=== PATIENT | male | born 1950 | race Two or more races ===

== ENCOUNTER 2020-12-07 23:55 | Inpatient (IN) | payer OTHER, MEDICAID ==
[~2020-12-07] VITALS: Ht 165.1 cm; Wt 73.2 kg
--- NOTE | 2020-12-07 19:20 | NUR ---
Admission report received from AM nurse.
--- NOTE | 2020-12-07 22:30 | NUR ---
Patient arrived in the unit via gurney accompanied by 2 EMT's. Awake, alert and Canadian speaking. RE-orient patient to room, call light, TV remote and nurses assigned. Denies any pauin/discomforts. Not in distress. [place] Collar in used, removed gently when settled in bed. Slight mobility noted when turning/repositioning self in bed. Routine admission care done. Care plan initiated.
[2020-12-08] VITALS: BP 127/67
[2020-12-08] MEDS ORDERED: Z GUARD REMEDY PASTE 57 GM TUBE TOP PRN (01:15)
[2020-12-08] MEDS ORDERED: POLY17PO4 PO (01:52)
[2020-12-08] MEDS ORDERED: NITR0.4T48 SL (01:52)
[2020-12-08] MEDS ORDERED: AMLO10TA59 PO (01:52)
[2020-12-08] MEDS ORDERED: LISI40TA13 PO (01:52)
[2020-12-08] MEDS ORDERED: INSU100V7 SQ (01:52)
[2020-12-08] MEDS ORDERED: ZOLP5TAB8 PO (01:52)
[2020-12-08] MEDS ORDERED: MINE3.5O44 (01:52)
[2020-12-08] MEDS ORDERED: INSU100V39 SQ (01:52)
[2020-12-08] MEDS ORDERED: CLON0.1T PO (01:52)
[2020-12-08] MEDS ORDERED: METH-807 PO (01:52)
[2020-12-08] MEDS ORDERED: BISA10SU61 RC (01:52)
[2020-12-08] MEDS ORDERED: DOCU100C36 PO (01:52)
[2020-12-08] MEDS ORDERED: ATOR20TA PO (01:52)
[2020-12-08] MEDS ORDERED: ACET-2154 PO (01:52)
[2020-12-08] MEDS ORDERED: HYDR-3980 PO (01:52)
[2020-12-08] MEDS ORDERED: ASPI81TA31 PO (01:52)
[2020-12-08] MEDS ORDERED: SENN8.6T19 PO (01:52)
[2020-12-08] MEDS ORDERED: POVI100M TP (01:52)
[2020-12-08 04:00] VITALS: BP 129/63
[2020-12-08] MEDS ORDERED: ZOLPIDEM 5 MG TABLET PO PRN (07:30)
[2020-12-08] MEDS ORDERED: SENNOSIDES 1 TABLET PO PRN (07:30)
[2020-12-08] MEDS ORDERED: BISACODYL 10 MG SUPP.RECT RC PRN (07:30)
[2020-12-08] MEDS ORDERED: ACETAMINOPHEN 325 MG TABLET PO PRN (07:30)
[2020-12-08] MEDS ORDERED: CLONIDINE HCL 0.1 MG TABLET PO PRN (07:30)
[2020-12-08] MEDS ORDERED: NITROGLYCERIN 0.4 MG/TAB BOTTLE SL PRN (07:30)
[2020-12-08] MEDS ORDERED: DEXTROSE 50% 50 ML DISP.SYRIN IV PRN (07:45)
[2020-12-08 08:00] VITALS: BP 129/71
[2020-12-08] MEDS ORDERED: POLYVINYL ALCOHOL OPHT DROPS 15 ML BOTTLE OP PRN (08:00)
[2020-12-08] MEDS: ASPIRIN 81 MG TAB.CHEW PO SCH (08:48)
[2020-12-08] MEDS: DOCUSATE SODIUM 100 MG CAPSULE PO SCH ×2 (08:48→20:07)
[2020-12-08] MEDS: AMLODIPINE 10 MG TABLET PO SCH (08:48)
[2020-12-08] MEDS: MIRALAX 17 GM POWD.PACK PO SCH (08:49)
[2020-12-08] MEDS: LISINOPRIL 20 MG TABLET PO SCH (08:49)
[2020-12-08] MEDS ORDERED: Medication Not On Formulary EA (Lisinopril 40 MG) PO SCH (09:00)
[2020-12-08] MEDS: HYDROCODONE/APAP 10-325 MG TABLET PO PRN ×2 (09:05→17:36)
[2020-12-08] MEDS: BLOOD SUGAR DIAGNOSTIC 1 EACH STRIP VI SCH ×3 (11:47→20:13)
[2020-12-08] MEDS: INSULIN REGULAR, HUMAN 300 UNIT/3 ML VIAL SQ PRN ×3 (11:51→20:14)
[2020-12-08] MEDS: ENOXAPARIN SODIUM 40 MG/0.4 ML DISP.SYRIN SQ SCH (11:52)
[2020-12-08] MEDS: METHOCARBAMOL 750 MG TABLET PO SCH ×2 (14:04→21:30)
--- NOTE | 2020-12-08 15:05 | NUR ---
INTERDISCIPLINARY TEAM CONFERENCE
[2020-12-08 16:00] VITALS: BP 148/81
[2020-12-08] MEDS: ATORVASTATIN 20 MG TABLET PO SCH (20:06)
[2020-12-08 20:35] VITALS: BP 103/44
--- NOTE | 2020-12-08 21:53 | NUR ---
Received resident asleep on bed, on room air, no respiratory distress noted. He is alert and oriented x4, Upper Sorbian speaking with little Urdu, able to make needs known. Accuchecks done, BS 269 with insulin sliding scale given. All due medications given and tolerated well. urinal at bedside. All needs attended. Call light placed within reach. Will continue to monitor.
[2020-12-09 04:35] VITALS: BP 146/78
[2020-12-09] MEDS: METHOCARBAMOL 750 MG TABLET PO SCH ×3 (05:56→21:05)
[2020-12-09] MEDS: BLOOD SUGAR DIAGNOSTIC 1 EACH STRIP VI SCH ×4 (06:39→20:44)
[2020-12-09] MEDS: DOCUSATE SODIUM 100 MG CAPSULE PO SCH ×2 (06:39→20:43)
[2020-12-09 06:51] LABS: HEMATOCRIT 33.4 % (36.7-47.1); MEAN CORPUSCULAR VOLUME 94.1 fL (73.0-96.2); PLATELET COUNT (AUTO) 325 K/uL (152-348)
--- NOTE | 2020-12-09 06:52 | NUR ---
Pt slept throughout the night. Arousable for care, Kiswahili speaking with little Solomon Islander, able to make needs known. Accuchecks done, BS 203. All due medications given and tolerated well. Urinal at bedside. All needs attended. Call light placed within reach. Frequent visual checks done. Will continue to monitor.
[2020-12-09 07:20] LABS: THYROID STIMULATING HORMONE 0.702 mIU/mL (0.358-3.740)
[2020-12-09 07:43] LABS: BILIRUBIN,TOTAL 0.7 mg/dL (0.2-1.0); CREATININE 0.8 mg/dL (0.6-1.3); MAGNESIUM 1.8 mg/dL (1.8-2.4); PHOSPHOROUS 2.5 mg/dL (2.5-4.9); POTASSIUM 4.7 mmol/L (3.5-5.1); TOTAL PROTEIN, SERUM 5.7 g/dL (6.4-8.2)
[2020-12-09] MEDS: AMLODIPINE 10 MG TABLET PO SCH (09:00)
[2020-12-09] MEDS: LISINOPRIL 20 MG TABLET PO SCH (09:00)
[2020-12-09] MEDS: ASPIRIN 81 MG TAB.CHEW PO SCH (09:08)
[2020-12-09] MEDS: HYDROCODONE/APAP 10-325 MG TABLET PO PRN ×3 (09:10→17:27)
[2020-12-09] MEDS: MIRALAX 17 GM POWD.PACK PO SCH (09:10)
[2020-12-09] MEDS: ENOXAPARIN SODIUM 40 MG/0.4 ML DISP.SYRIN SQ SCH (09:15)
[2020-12-09] MEDS: INSULIN REGULAR, HUMAN 300 UNIT/3 ML VIAL SQ PRN ×3 (09:26→16:33)
[2020-12-09 12:00] VITALS: BP 119/58
[2020-12-09 16:00] VITALS: BP 116/56
[2020-12-09] MEDS ORDERED: DEXTROSE 50% 50 ML DISP.SYRIN IV PRN (16:00)
[2020-12-09] MEDS ORDERED: INSULIN REGULAR, HUMAN 300 UNITS/3 ML VIAL SQ PRN (16:00)
--- NOTE | 2020-12-09 18:37 | NUR ---
Received resident awake resting on bed, on room air sat 98%, no respiratory distress noted. He is alert and oriented x4, English speaking with little Ukrainian pleasant watching TV, able to make needs known. Accucheck done, latest BS 195 with insulin sliding scale given. All due medications given and tolerated well. urinal at bedside. All needs attended. Call light placed within reach. Will continue to monitor.
[2020-12-09 20:00] VITALS: BP 100/64
[2020-12-09] MEDS: ATORVASTATIN 20 MG TABLET PO SCH (20:43)
--- NOTE | 2020-12-09 21:53 | NUR ---
Dulcolax suppository given as ordered and needed for constipation. Patient reported that he has no BM for 2 weeks. Will monitor.
[2020-12-10 04:00] VITALS: BP 163/49
[2020-12-10] MEDS: METHOCARBAMOL 750 MG TABLET PO SCH ×3 (05:33→21:21)
[2020-12-10] MEDS: DOCUSATE SODIUM 100 MG CAPSULE PO SCH ×2 (05:33→20:28)
[2020-12-10] MEDS: BLOOD SUGAR DIAGNOSTIC 1 EACH STRIP VI SCH ×4 (05:39→20:34)
[2020-12-10] MEDS: HYDROCODONE/APAP 10-325 MG TABLET PO PRN ×4 (05:43→20:30)
--- NOTE | 2020-12-10 06:28 | NUR ---
BP 163/49, Catapres given as ordered and needed. Medicated for pain as well, Raymond 1 tab given. BS 267 mg/dl. Denies any s/s of hyperglycemia. Will monitor and endorsed to oncoming nurse accordingly.
--- NOTE | 2020-12-10 07:54 | NUR ---
Received resident awake resting on bed, on room air sat 98%, no respiratory distress noted. He is alert and oriented x4, Romanian speaking with little Serbian pleasant, able to make needs known. urinal at bedside. All needs attended. Call light placed within reach. Will continue to monitor.
[2020-12-10] MEDS: MIRALAX 17 GM POWD.PACK PO SCH (08:48)
[2020-12-10] MEDS: ASPIRIN 81 MG TAB.CHEW PO SCH (08:48)
[2020-12-10] MEDS: AMLODIPINE 10 MG TABLET PO SCH (09:38)
[2020-12-10] MEDS: LISINOPRIL 20 MG TABLET PO SCH (09:39)
[2020-12-10] MEDS: ENOXAPARIN SODIUM 40 MG/0.4 ML DISP.SYRIN SQ SCH (09:41)
[2020-12-10] MEDS: INSULIN REGULAR, HUMAN 300 UNIT/3 ML VIAL SQ PRN ×2 (12:05→16:34)
--- NOTE | 2020-12-10 12:17 | NUR ---
Pt Finger stick accucheck done at 11:30 was 434, 20 units of regular insulin given per sliding scale Silvia LEAD TECHNICAL ARCHITECT notified and she will make new order will continue to monitor
--- NOTE | 2020-12-10 15:34 | NUR ---
INDIVIDUALIZED PLAN OF CARE
--- NOTE | 2020-12-10 16:02 | NUR ---
INDIVIDUALIZED PLAN OF CARE
[2020-12-10 16:26] VITALS: BP 129/67
--- NOTE | 2020-12-10 18:50 | NUR ---
Resident remain awake resting on bed, on room air sat 98%, no respiratory distress noted. He is alert and oriented x4, Czech speaking, pleasant watching TV, able to make needs known. Up in W/C with PT ambulate with FWW . Accucheck done, latest BS 291 ,12 units of regular insulin by sliding scale given. All due medications given and tolerated well.Medicated with pain meds As order, urinal at bedside. All needs attended. Call light placed within reach. Will continue to monitor
[2020-12-10] MEDS: ATORVASTATIN 20 MG TABLET PO SCH (20:28)
[2020-12-10 20:35] VITALS: BP 124/63
[2020-12-10] MEDS: INSULIN GLARGINE,HUM 300 UNITS/3 ML CARTRIDGE SQ SCH (21:00)
--- NOTE | 2020-12-10 21:14 | NUR ---
Blood sugar taken 63, lantus 8 units not given MD aware
--- NOTE | 2020-12-10 23:36 | NUR ---
AAO x4 Needs attended. Admitted for falls with head trauma. Patient had C3-C4 laminectomy with cervical fusion. Voiding freely in the urinal. 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 On pain management. Medicated for pain as needed.Accucheck 63 Lantus 8 units held per MD order.
[2020-12-11 04:31] VITALS: BP 153/80
[2020-12-11] MEDS: METHOCARBAMOL 750 MG TABLET PO SCH ×3 (05:56→21:25)
[2020-12-11] MEDS: DOCUSATE SODIUM 100 MG CAPSULE PO SCH ×2 (06:30→20:53)
[2020-12-11] MEDS: BLOOD SUGAR DIAGNOSTIC 1 EACH STRIP VI SCH ×4 (06:31→21:01)
[2020-12-11 08:00] VITALS: BP 142/65
[2020-12-11] MEDS: ASPIRIN 81 MG TAB.CHEW PO SCH (08:30)
[2020-12-11] MEDS: MIRALAX 17 GM POWD.PACK PO SCH (08:30)
[2020-12-11] MEDS: INSULIN REGULAR, HUMAN 300 UNIT/3 ML VIAL SQ PRN ×3 (08:31→16:34)
[2020-12-11] MEDS: ENOXAPARIN SODIUM 40 MG/0.4 ML DISP.SYRIN SQ SCH (08:32)
[2020-12-11] MEDS: HYDROCODONE/APAP 10-325 MG TABLET PO PRN ×3 (08:43→20:53)
[2020-12-11] MEDS: AMLODIPINE 10 MG TABLET PO SCH (08:43)
[2020-12-11] MEDS: LISINOPRIL 20 MG TABLET PO SCH (08:44)
--- NOTE | 2020-12-11 12:53 | NUR ---
Patient is alert and oriented x 4, Maldivian speaking. Patient went off the unit for rehab and able to tolerated well. Pt wears his neck collar brace at all times when out of bed, sister came to visit and brought some clothes for him. updated the belongings checklist. All needs met promptly. All due meds given per MD order.
[2020-12-11 14:41] LABS: HEMATOCRIT 33.3 % (36.7-47.1); MEAN CORPUSCULAR HEMOGLOBIN 32.9 uug (23.8-33.4); MEAN CORPUSCULAR VOLUME 95.4 fL (73.0-96.2); PLATELET COUNT (AUTO) 389 K/uL (152-348)
[2020-12-11 14:51] LABS: CREATININE 1.2 mg/dL (0.6-1.3); POTASSIUM 5.3 mmol/L (3.5-5.1)
--- NOTE | 2020-12-11 15:05 | NUR ---
Glucose lab result is 506. Notified Silvia Bentley and abating for response.
[2020-12-11 15:14] VITALS: BP 138/63
--- NOTE | 2020-12-11 15:25 | NUR ---
Silvia Bentley DNP ordered for accucheck and to check hi BP, blood sugar is 435 and BP is 142/73 Notified Silvia Bentley and stated that she will look on his labs and placed some orders.
--- NOTE | 2020-12-11 17:00 | NUR ---
Silvia Bentley ordered for Insulin regular 10units x 1. Given to the patient and started NS at right hand IV site per MD order.
[2020-12-11] MEDS ORDERED: IV NS 1000 ML 1,000 ML IV PRN (17:30)
[2020-12-11] MEDS ORDERED: INSULIN REGULAR, HUMAN 300 UNIT/3 ML VIAL IV ONE (17:30)
[2020-12-11 19:54] VITALS: BP 120/62
[2020-12-11 20:11] LABS: POTASSIUM 4.7 mmol/L (3.5-5.1)
[2020-12-11] MEDS: ATORVASTATIN 20 MG TABLET PO SCH (20:54)
[2020-12-11] MEDS: INSULIN GLARGINE,HUM 300 UNITS/3 ML CARTRIDGE SQ SCH (21:00)
--- NOTE | 2020-12-11 21:02 | NUR ---
Blood sugar 61. Lantus not given. Will monitor blood sugar.
[2020-12-11] MEDS ORDERED: METHOCARBAMOL 500 MG TABLET ONE (21:22)
--- NOTE | 2020-12-12 01:17 | NUR ---
Awake alert and oriented x4 On continous IVF of NSS @ 100cc/hr infusing well via right hand heplock. Tolerated po meds well. Needs attended. Accucheck @ 2100 was 61, OJ given with 2 sugars.Lantus 8 units held. No acute distress noted. At 0100 patient complained he dont feel good. He thinks his sugar is low.Blood sugar rechecked it was 59.1amp D50 given per protocol. Blood sugar repeated after D50 and it was 187. Will monitor BS. Voiding well in the urinal.
[2020-12-12 04:30] VITALS: BP 171/84
[2020-12-12] MEDS: METHOCARBAMOL 750 MG TABLET PO SCH ×3 (05:50→21:01)
[2020-12-12] MEDS: BLOOD SUGAR DIAGNOSTIC 1 EACH STRIP VI SCH ×4 (06:30→20:38)
[2020-12-12] MEDS: DOCUSATE SODIUM 100 MG CAPSULE PO SCH ×2 (06:30→20:45)
[2020-12-12 08:00] VITALS: BP 126/63
[2020-12-12 08:10] LABS: MEAN CORPUSCULAR HEMOGLOBIN 32.6 uug (23.8-33.4); MEAN CORPUSCULAR VOLUME 93.7 fL (73.0-96.2); PLATELET COUNT (AUTO) 395 K/uL (152-348)
[2020-12-12 08:36] LABS: CARBON DIOXIDE 26 mmol/L (21-32); CHLORIDE 99 mmol/L (98-107); CREATININE 0.6 mg/dL (0.6-1.3); GLUCOSE 280 mg/dL (74-106); PHOSPHOROUS 2.6 mg/dL (2.5-4.9); POTASSIUM 4.5 mmol/L (3.5-5.1); UREA NITROGEN, BLOOD 11 mg/dL (7-18)
[2020-12-12] MEDS: INSULIN REGULAR, HUMAN 300 UNIT/3 ML VIAL SQ PRN ×4 (08:46→20:47)
[2020-12-12] MEDS: ENOXAPARIN SODIUM 40 MG/0.4 ML DISP.SYRIN SQ SCH (08:46)
[2020-12-12] MEDS: MIRALAX 17 GM POWD.PACK PO SCH (08:50)
[2020-12-12] MEDS: ASPIRIN 81 MG TAB.CHEW PO SCH (08:50)
[2020-12-12] MEDS: LISINOPRIL 20 MG TABLET PO SCH (08:50)
[2020-12-12] MEDS: AMLODIPINE 10 MG TABLET PO SCH (08:50)
[2020-12-12] MEDS: HYDROCODONE/APAP 10-325 MG TABLET PO PRN ×2 (08:53→13:18)
--- NOTE | 2020-12-12 09:51 | NUR ---
Patient is alert and oriented x 4, cooperative and pleasant upon assessment, Belgian speaking. Patient has an ongoing NS on the right hand G22 . IV site intact. Neck collar brace is on at all times when patient is out of bed. No redness noted on the brennan on the right side of the forehead open to air . No redness noted on the back of neck open to air as well. Patient went off the unit for therapy for an hour . Patient assisted back to bed and placed call light and urinal within easy reach .
[2020-12-12] MEDS ORDERED: DEXTROSE 50% 50 ML DISP.SYRIN IV PRN (12:00)
[2020-12-12 16:00] VITALS: BP 139/67
[2020-12-12] MEDS: INSULIN GLARGINE,HUM 300 UNITS/3 ML CARTRIDGE SQ SCH (20:45)
[2020-12-12] MEDS: ATORVASTATIN 20 MG TABLET PO SCH (20:45)
[2020-12-12] MEDS: INSULIN REGULAR, HUMAN 300 UNITS/3 ML VIAL SQ PRN (20:47)
[2020-12-12 20:59] VITALS: BP 140/60
--- NOTE | 2020-12-12 23:24 | NUR ---
PATIENT DENIES ANY DISCOMFORT. NECK BRACE AT BEDSIDE WHILE IN BED. SKIN INTACT TO THE FOREHEAD, NO BLEEDING NOTED. IV SITE INTACT. INSULIN SLIDING SCALE GIVEN PER ORDER. BS WAS 285mg/dL. NO DISTRESS IDENTIFIED. KEPT CALL LIGHT WITHIN REACH. ALL NEEDS ATTENDED. DUE MEDS GIVEN. WILL ENDORSE TO THE NEXT NURSE FOR CONTINUITY OF CARE.
--- NOTE | 2020-12-13 00:47 | NUR ---
Received pt resting in bed at 2300. AAO x4. No acute distress noted. Denies pain/ discomfort. Safety measures maintained. Call light within reach. Will continue to monitor.
[2020-12-13 04:45] VITALS: BP 149/81
[2020-12-13] MEDS: METHOCARBAMOL 750 MG TABLET PO SCH ×3 (06:10→21:04)
[2020-12-13] MEDS: DOCUSATE SODIUM 100 MG CAPSULE PO SCH ×2 (06:38→18:34)
[2020-12-13] MEDS: BLOOD SUGAR DIAGNOSTIC 1 EACH STRIP VI SCH ×4 (06:38→21:08)
[2020-12-13 07:30] VITALS: BP 142/72
[2020-12-13] MEDS: ASPIRIN 81 MG TAB.CHEW PO SCH (08:22)
[2020-12-13] MEDS: MIRALAX 17 GM POWD.PACK PO SCH (08:22)
[2020-12-13] MEDS: LISINOPRIL 20 MG TABLET PO SCH (08:23)
[2020-12-13] MEDS: AMLODIPINE 10 MG TABLET PO SCH (08:23)
[2020-12-13] MEDS: HYDROCODONE/APAP 10-325 MG TABLET PO PRN ×2 (08:24→16:46)
[2020-12-13] MEDS: INSULIN REGULAR, HUMAN 300 UNIT/3 ML VIAL SQ PRN ×3 (08:25→16:45)
[2020-12-13] MEDS: INSULIN GLARGINE,HUM 300 UNITS/3 ML CARTRIDGE SQ SCH (08:31)
[2020-12-13] MEDS: ENOXAPARIN SODIUM 40 MG/0.4 ML DISP.SYRIN SQ SCH (09:57)
[2020-12-13 15:44] VITALS: BP 134/64
[2020-12-13 20:47] VITALS: BP 99/56
[2020-12-13] MEDS ORDERED: INSULIN GLARGINE,HUM 300 UNITS/3 ML CARTRIDGE SQ SCH (21:00)
[2020-12-13] MEDS: ATORVASTATIN 20 MG TABLET PO SCH (21:04)
[2020-12-13] MEDS: INSULIN REGULAR, HUMAN 300 UNITS/3 ML VIAL SQ PRN (21:14)
[2020-12-14 04:40] VITALS: BP 145/75
[2020-12-14] MEDS: METHOCARBAMOL 750 MG TABLET PO SCH ×3 (06:01→21:41)
[2020-12-14] MEDS: BLOOD SUGAR DIAGNOSTIC 1 EACH STRIP VI SCH ×4 (06:01→20:14)
[2020-12-14] MEDS: DOCUSATE SODIUM 100 MG CAPSULE PO SCH ×2 (06:01→20:09)
--- NOTE | 2020-12-14 06:51 | NUR ---
Shift End Report: Slept good. No complaint presented all night. No s/s of hypo/hyperglycemia noted. All needs attended and met. No significant event reported all night. Continue current rehab plan of care.
[2020-12-14] MEDS: ASPIRIN 81 MG TAB.CHEW PO SCH (08:33)
[2020-12-14] MEDS: MIRALAX 17 GM POWD.PACK PO SCH (08:34)
[2020-12-14] MEDS: HYDROCODONE/APAP 10-325 MG TABLET PO PRN ×3 (08:36→20:09)
[2020-12-14] MEDS: ENOXAPARIN SODIUM 40 MG/0.4 ML DISP.SYRIN SQ SCH (08:46)
[2020-12-14] MEDS: INSULIN REGULAR, HUMAN 300 UNIT/3 ML VIAL SQ PRN ×2 (08:47→11:36)
[2020-12-14] MEDS: INSULIN GLARGINE,HUM 300 UNITS/3 ML CARTRIDGE SQ SCH (08:47)
[2020-12-14] MEDS: LISINOPRIL 20 MG TABLET PO SCH (08:48)
[2020-12-14] MEDS: AMLODIPINE 10 MG TABLET PO SCH (08:48)
[2020-12-14] MEDS: METFORMIN HCL 500 MG TABLET PO SCH ×2 (09:33→17:07)
[2020-12-14] MEDS ORDERED: INSULIN ASPART 300 UNIT/3 ML CARTRIDGE SQ SCH (13:00)
[2020-12-14] MEDS: INSULIN REGULAR, HUMAN 300 UNIT/3 ML VIAL SQ SCH ×2 (13:59→16:54)
[2020-12-14 16:18] VITALS: BP 140/65
[2020-12-14] MEDS: NUTRISOURCE FIBER 4 GM PACKET PO SCH (16:56)
--- NOTE | 2020-12-14 17:45 | NUR ---
Notified Dr. Curiel regarding blood sugar of 94 and followed up if OK to administer metformin that is due. Per MD hold metformin for now.
--- NOTE | 2020-12-14 18:51 | NUR ---
Patient remains alert, oriented x 4, not in any form of distress on room air. Patient is compliant with medications. He complained of pain on neck shoulder and back, given PRN pain medication as ordered with noted relief. Patient participated with PT/OT during the shift and tolerated. Assisted with her needs. Call light and frequently used items placed within patient's reach. Will continue to monitor and will endorse accordingly.
[2020-12-14] MEDS: ATORVASTATIN 20 MG TABLET PO SCH (20:07)
[2020-12-14 20:19] VITALS: BP 130/68
[2020-12-15 05:04] VITALS: BP_SYST 138; BP_SYST 150; BP_DIAS 76; BP_DIAS 77
[2020-12-15] MEDS: METHOCARBAMOL 750 MG TABLET PO SCH ×3 (06:00→22:03)
[2020-12-15] MEDS: BLOOD SUGAR DIAGNOSTIC 1 EACH STRIP VI SCH ×4 (06:10→20:25)
[2020-12-15] MEDS: DOCUSATE SODIUM 100 MG CAPSULE PO SCH ×2 (06:14→20:22)
--- NOTE | 2020-12-15 07:15 | NUR ---
Received pt resting in bed watching TV. AAO x4. No acute distress noted. Denies pain/ discomfort. Safety measures maintained. Call light within reach. Will continue to monitor.
[2020-12-15 08:00] VITALS: BP 157/76
[2020-12-15] MEDS: ASPIRIN 81 MG TAB.CHEW PO SCH (08:10)
[2020-12-15] MEDS: METFORMIN HCL 500 MG TABLET PO SCH ×2 (08:10→17:12)
[2020-12-15] MEDS: LISINOPRIL 20 MG TABLET PO SCH (08:10)
[2020-12-15] MEDS: AMLODIPINE 10 MG TABLET PO SCH (08:11)
[2020-12-15] MEDS: MIRALAX 17 GM POWD.PACK PO SCH (08:11)
[2020-12-15] MEDS: INSULIN REGULAR, HUMAN 300 UNIT/3 ML VIAL SQ SCH ×3 (08:16→17:15)
[2020-12-15] MEDS: ENOXAPARIN SODIUM 40 MG/0.4 ML DISP.SYRIN SQ SCH (08:20)
[2020-12-15] MEDS: NUTRISOURCE FIBER 4 GM PACKET PO SCH ×3 (08:39→16:59)
[2020-12-15] MEDS: HYDROCODONE/APAP 10-325 MG TABLET PO PRN ×2 (08:41→14:56)
[2020-12-15] MEDS: INSULIN GLARGINE,HUM 300 UNITS/3 ML CARTRIDGE SQ SCH (08:48)
[2020-12-15] MEDS: INSULIN REGULAR, HUMAN 300 UNIT/3 ML VIAL SQ PRN ×2 (09:26→11:27)
--- NOTE | 2020-12-15 10:26 | NUR ---
blood sugar rechecked per patient request and per MD order, with result of 428, patient stated he has no symptoms, such as no nausea, no vomiting, no fruity smell, no headache, no dizzy, patient received 9 units per sliding scale and 3 units of regular routine insulin per order, continue to monitor.
--- NOTE | 2020-12-15 11:43 | NUR ---
blood sugar rechecked 334 as ordered, sliding scale insulin given as ordered, continue to monitor, patient denied any symptoms such as dizziness, headache, no fruity smell noted, no acute distress noted. patient teaching done for signs and symptoms of hypoglycemia such as sweating, cold extremities, lightheaded, patient verbalized understanding of it.
--- NOTE | 2020-12-15 13:40 | NUR ---
INTERDISCIPLINARY TEAM CONFERENCE
--- NOTE | 2020-12-15 14:09 | NUR ---
Seen and examine by DR Martin with new order for CT without contrast of the left shoulder , and removal of the brennan at the right side of the forehead order noted and carry out.
[2020-12-15 16:09] VITALS: BP 122/59
--- NOTE | 2020-12-15 18:20 | NUR ---
informed PT of discharge planning for this coming Sunday because of ivana and movement improving notified that insurance will provide therapy visits at home and equipment like walker and commode he will also have post op F/U appointment surgeon DR Elmore next Sunday pt verbalized understanding.
--- NOTE | 2020-12-15 18:29 | NUR ---
Patient remains alert, oriented x 4, not respiratory distress noted on room air. Patient is compliant with medications. He complained of pain on neck shoulder and back, given PRN pain medication as ordered . brennan from right side of the forehead removed as per order. Patient up in W/C participated with PT/OT during the shift and tolerated.Accucheck at 1630 = 83 no covering given Assisted with his needs. Call light and frequently used items placed within patient's reach. Will continue to monitor and will endorse accordingly.
[2020-12-15 20:00] VITALS: BP 129/67
[2020-12-15] MEDS: ATORVASTATIN 20 MG TABLET PO SCH (20:22)
[2020-12-16 04:00] VITALS: BP 161/82
[2020-12-16] MEDS: METHOCARBAMOL 750 MG TABLET PO SCH ×3 (05:49→21:21)
[2020-12-16] MEDS: BLOOD SUGAR DIAGNOSTIC 1 EACH STRIP VI SCH ×4 (05:52→21:00)
[2020-12-16 08:00] VITALS: BP 137/76
[2020-12-16] MEDS: HYDROCODONE/APAP 10-325 MG TABLET PO PRN ×2 (08:22→17:32)
[2020-12-16] MEDS: METFORMIN HCL 500 MG TABLET PO SCH ×2 (08:22→17:27)
[2020-12-16] MEDS: ASPIRIN 81 MG TAB.CHEW PO SCH (08:23)
[2020-12-16] MEDS: DOCUSATE SODIUM 100 MG CAPSULE PO SCH ×2 (08:23→20:57)
[2020-12-16] MEDS: INSULIN REGULAR, HUMAN 300 UNIT/3 ML VIAL SQ SCH ×3 (08:25→17:20)
[2020-12-16] MEDS: INSULIN REGULAR, HUMAN 300 UNIT/3 ML VIAL SQ PRN ×3 (08:26→17:21)
[2020-12-16] MEDS: MIRALAX 17 GM POWD.PACK PO SCH (08:29)
[2020-12-16] MEDS: ENOXAPARIN SODIUM 40 MG/0.4 ML DISP.SYRIN SQ SCH (08:31)
[2020-12-16] MEDS: AMLODIPINE 10 MG TABLET PO SCH (08:33)
[2020-12-16] MEDS: LISINOPRIL 20 MG TABLET PO SCH (08:34)
[2020-12-16] MEDS: NUTRISOURCE FIBER 4 GM PACKET PO SCH ×3 (08:34→17:55)
[2020-12-16 08:35] VITALS: BP 96/51
[2020-12-16] MEDS: INSULIN GLARGINE,HUM 300 UNITS/3 ML CARTRIDGE SQ SCH (09:51)
--- NOTE | 2020-12-16 15:30 | NUR ---
Received patient in bed, alert and oriented x 4, pleasant and cooperative upon assessment, patient has neck collar at all times when out of bed, all due meds given per MD order and tolerated well. Clayton contreras room air saturating at 95%, no s/s of distress, call light and urinal placed within easy reach. Will continue to monitor the patient for safety.
[2020-12-16 16:00] VITALS: BP 125/58
[2020-12-16 20:00] VITALS: BP 109/59
[2020-12-16] MEDS: ATORVASTATIN 20 MG TABLET PO SCH (20:57)
[2020-12-16] MEDS: INSULIN REGULAR, HUMAN 300 UNITS/3 ML VIAL SQ PRN (21:01)
[2020-12-17 04:00] VITALS: BP 135/69
[2020-12-17] MEDS: METHOCARBAMOL 750 MG TABLET PO SCH ×3 (05:27→21:15)
[2020-12-17] MEDS: BLOOD SUGAR DIAGNOSTIC 1 EACH STRIP VI SCH ×4 (05:31→20:53)
[2020-12-17 08:00] VITALS: BP 138/72
[2020-12-17] MEDS: INSULIN REGULAR, HUMAN 300 UNIT/3 ML VIAL SQ SCH ×3 (08:02→17:36)
[2020-12-17] MEDS: INSULIN REGULAR, HUMAN 300 UNIT/3 ML VIAL SQ PRN ×3 (08:03→15:53)
[2020-12-17] MEDS: METFORMIN HCL 500 MG TABLET PO SCH ×2 (08:35→17:29)
[2020-12-17] MEDS: DOCUSATE SODIUM 100 MG CAPSULE PO SCH ×2 (08:35→20:47)
[2020-12-17] MEDS: MIRALAX 17 GM POWD.PACK PO SCH (08:36)
[2020-12-17] MEDS: AMLODIPINE 5 MG TABLET PO SCH (08:36)
[2020-12-17] MEDS: ASPIRIN 81 MG TAB.CHEW PO SCH (08:36)
[2020-12-17] MEDS: NUTRISOURCE FIBER 4 GM PACKET PO SCH ×3 (08:37→17:29)
[2020-12-17] MEDS: LISINOPRIL 20 MG TABLET PO SCH (08:51)
[2020-12-17] MEDS: INSULIN GLARGINE,HUM 300 UNITS/3 ML CARTRIDGE SQ SCH (08:58)
[2020-12-17] MEDS: HYDROCODONE/APAP 10-325 MG TABLET PO PRN ×2 (08:59→19:34)
[2020-12-17] MEDS: ENOXAPARIN SODIUM 40 MG/0.4 ML DISP.SYRIN SQ SCH (09:03)
[2020-12-17] MEDS ORDERED: ONDANSETRON ODT 4 MG TAB.RAPDIS SL PRN (12:30)
[2020-12-17 16:00] VITALS: BP 129/88
[2020-12-17] MEDS ORDERED: CALCIUM CARBONATE 500 MG TAB.CHEW PO PRN (17:00)
--- NOTE | 2020-12-17 19:00 | NUR ---
patient vomited x1 during shift, which is resolved with one dose of MD espinoza aware, no distress noted.
[2020-12-17 20:00] VITALS: BP 117/71
[2020-12-17] MEDS: ATORVASTATIN 20 MG TABLET PO SCH (20:47)
[2020-12-18 04:00] VITALS: BP 110/70
[2020-12-18] MEDS: METHOCARBAMOL 750 MG TABLET PO SCH ×2 (05:40→13:08)
[2020-12-18] MEDS: BLOOD SUGAR DIAGNOSTIC 1 EACH STRIP VI SCH ×3 (05:40→17:14)
[2020-12-18 08:07] VITALS: BP 102/34
[2020-12-18] MEDS: ASPIRIN 81 MG TAB.CHEW PO SCH (08:52)
[2020-12-18] MEDS: DOCUSATE SODIUM 100 MG CAPSULE PO SCH (08:52)
[2020-12-18] MEDS: MIRALAX 17 GM POWD.PACK PO SCH (08:55)
[2020-12-18] MEDS: METFORMIN HCL 500 MG TABLET PO SCH ×2 (08:55→17:09)
[2020-12-18] MEDS: HYDROCODONE/APAP 10-325 MG TABLET PO PRN ×3 (08:59→18:31)
[2020-12-18] MEDS: LISINOPRIL 20 MG TABLET PO SCH (09:00)
[2020-12-18] MEDS: AMLODIPINE 5 MG TABLET PO SCH (09:00)
[2020-12-18] MEDS: INSULIN REGULAR, HUMAN 300 UNIT/3 ML VIAL SQ SCH ×3 (09:10→17:35)
[2020-12-18] MEDS: ENOXAPARIN SODIUM 40 MG/0.4 ML DISP.SYRIN SQ SCH (09:11)
[2020-12-18] MEDS: INSULIN REGULAR, HUMAN 300 UNIT/3 ML VIAL SQ PRN ×2 (09:11→11:59)
[2020-12-18] MEDS: INSULIN GLARGINE,HUM 300 UNITS/3 ML CARTRIDGE SQ SCH (09:12)
[2020-12-18] MEDS: NUTRISOURCE FIBER 4 GM PACKET PO SCH ×3 (09:13→17:08)
--- NOTE | 2020-12-18 10:00 | NUR ---
Dr. Curiel in the unit. MD notified regarding decreased in blood pressure during therapy with no complaints of any discomfort, per MD OK to hold due amlodipine and lisinopril. MD discontinued discharge medication amlodipine.
[2020-12-18] MEDS ORDERED: HYDR-3980 PO (10:21)
--- NOTE | 2020-12-18 13:00 | NUR ---
Dr. Martin saw patient, update given to . Dr. Martin gave order for discharge to home with home health. Patient aware and agreeable.
[2020-12-18 16:00] VITALS: BP 123/66
--- NOTE | 2020-12-18 18:00 | NUR ---
Patient noted with blood sugar of 45, he is alert, oriented x 4, not in any form of distress, no complain of any discomfort. Given orange juice, blood sugar rechecked 85 and patient given his dinner. Notified Dr. Curiel regarding blood sugar and per MD OK to hold insulin regular and metformin due at this time and to cancel discharge medication insulin regular.
--- NOTE | 2020-12-18 19:15 | NUR ---
Discharge instructions provided to the patient with verbalized understanding. Discharge papers signed by and given to the patient including prescriptions. All belongings well accounted for. Discharge photos taken. Patient remains alert, oriented x4, not in any form of distress, on room air. He denies any pain or discomfort at this time. Vital signs stable. Assisted patient to the lobby. Patient picked up by car care of access to care transportation.
== END 2020-12-18 18:30 | disposition home health service (06) | DRG 949 ==
PROVIDERS: ADMIT Physical Medicine & Rehabilitation Pain Medicine; ATTEND Physical Medicine & Rehabilitation Pain Medicine
DX: S14.0XXD Concussion and edema of cervical spinal cord, subsequent encounter (principal); I50.30 Unspecified diastolic (congestive) heart failure; S01.81XD Laceration without foreign body of other part of head, subsequent encounter; E11.65 Type 2 diabetes mellitus with hyperglycemia; E78.5 Hyperlipidemia, unspecified; W01.190D Fall on same level from slipping, tripping and stumbling with subsequent striking against furniture, subsequent encounter; I11.0 Hypertensive heart disease with heart failure; M48.061 Spinal stenosis, lumbar region without neurogenic claudication; R53.1 Weakness; E11.649 Type 2 diabetes mellitus with hypoglycemia without coma; R52 Pain, unspecified; Z98.1 Arthrodesis status; R26.81 Unsteadiness on feet
CPT/HCPCS: 36415; 73030; 73200; 82652; 83735; 84100; 84443; 85025; 97161; A4663; J1650; J1815; J3490; J7030; Q0162